=== PATIENT | female | born 1945 | race Caucasian/White ===

== ENCOUNTER 2018-09-25 06:49 | Day surgery (SDC) | payer MEDICARE ==
[~2018-09-25 06:49] MED LIST: TROP 1%/CYCLOPEN 1%/PHENYL 2% DROPS ONE
[2018-09-25] MEDS ORDERED: MIDAZOLAM INJ 2 MG/2 ML VIAL ONE ×2 (07:47→08:10)
[2018-09-25] MEDS: PROPARACAINE 0.5% OPHTH SOL 15 ML BTTL ONE (07:53)
[2018-09-25] MEDS: DEXAMETHASONE 0.1% OPHTH SOL 1 DROP LEFT_EYE ONE ×2 (08:07→08:22)
[2018-09-25] MEDS: LIDOCAINE 1% MPF 5 ML VIAL INJ ONE (08:07)
[2018-09-25] MEDS: TOBRAMYCIN SULF 0.3 % OPHT SOL 1 DROP LEFT_EYE ONE ×2 (08:08→08:22)
[2018-09-25] MEDS: BRIMONIDINE 0.2% OPHTH DROPS LEFT_EYE ONE ×2 (08:09→08:22)
== END 2018-09-25 09:05 | disposition home or self-care (01) ==
LOC: AMB 06:49
PROVIDERS: ATTEND Ophthalmology
DX: H25.12 Age-related nuclear cataract, left eye (principal); E11.36 Type 2 diabetes mellitus with diabetic cataract; Z88.2 Allergy status to sulfonamides; Z88.1 Allergy status to other antibiotic agents; Z88.5 Allergy status to narcotic agent; Z79.4 Long term (current) use of insulin
CPT/HCPCS: 00142; 36416; 66984; 82948; J2250

== ENCOUNTER 2018-10-09 05:26 | Day surgery (SDC) | payer MEDICARE ==
[2018-10-09] MEDS ORDERED: MOXIFLOXACIN HCL (OPHTH) 1 DROP DROPS ONE (05:46)
[2018-10-09] MEDS ORDERED: TROP 1%/CYCLOPEN 1%/PHENYL 2% DROPS ONE (05:47)
[2018-10-09] MEDS ORDERED: PROPARACAINE 0.5% OPHTH SOL 15 ML BTTL ONE (05:47)
[2018-10-09] MEDS ORDERED: MIDAZOLAM INJ 5 MG/5 ML VIAL ONE (07:09)
[2018-10-09] MEDS ORDERED: PROPARACAINE 0.5% OPHTH SOL 15 ML BTTL RIGHT_EYE ONE (07:30)
[2018-10-09] MEDS ORDERED: DEXAMETHASONE 0.1% OPHTH SOL 1 DROP RIGHT_EYE ONE ×2 (07:40→07:51)
[2018-10-09] MEDS ORDERED: LIDOCAINE 1% 2 ML VIAL INJ ONE (07:40)
[2018-10-09] MEDS ORDERED: BRIMONIDINE 0.2% OPHTH DROPS RIGHT_EYE ONE ×2 (07:40→07:51)
[2018-10-09] MEDS ORDERED: TOBRAMYCIN SULF 0.3 % OPHT SOL 1 DROP RIGHT_EYE ONE ×2 (07:40→07:51)
== END 2018-10-09 08:40 | disposition home or self-care (01) ==
LOC: AMB 05:26
PROVIDERS: ATTEND Ophthalmology
DX: H25.11 Age-related nuclear cataract, right eye (principal); E11.36 Type 2 diabetes mellitus with diabetic cataract; K21.9 Gastro-esophageal reflux disease without esophagitis; J44.9 Chronic obstructive pulmonary disease, unspecified; Z87.891 Personal history of nicotine dependence; E11.22 Type 2 diabetes mellitus with diabetic chronic kidney disease; N18.3 Chronic kidney disease, stage 3 (moderate); Z88.2 Allergy status to sulfonamides; Z88.5 Allergy status to narcotic agent; Z79.82 Long term (current) use of aspirin; Z79.4 Long term (current) use of insulin; Z79.899 Other long term (current) drug therapy
CPT/HCPCS: 00142; 66984; 82948; J2250